=== PATIENT | male | born 1985 | race Caucasian/White ===

== ENCOUNTER 2018-02-25 19:29 | Emergency (ER) | payer OTHER, SELFPAY ==
[2018-02-25 19:31] VITALS: BP 173/92; PULSE 115; RESP 22; TEMP 36.9; O2SAT 98; BMI 24.7
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
[2018-02-25] MEDS: Diphth,Pertuss(Acell),Tet Vac 0.5 ML Vial IM (20:51)
[2018-02-25] MEDS: BACITRACIN 15 GM Tube 1 APPLIC TOPICAL (20:53)
[2018-02-25 21:09] VITALS: BP 144/78; PULSE 71; RESP 17; O2SAT 99
== END 2018-02-25 21:09 | disposition home or self-care (01) ==
PROVIDERS: Emergency Provider Emergency Medicine; Family Provider Family Medicine; PCP Family Medicine
DX: S61.012A Laceration without foreign body of left thumb without damage to nail, initial encounter (principal); S61.211A Laceration without foreign body of left index finger without damage to nail, initial encounter; W26.8XXA Contact with other sharp object(s), not elsewhere classified, initial encounter; Y93.9 Activity, unspecified; Y92.9 Unspecified place or not applicable; F41.9 Anxiety disorder, unspecified; Z79.899 Other long term (current) drug therapy
CPT/HCPCS: 12002; 90471; 90715; 99283

== ENCOUNTER 2020-05-07 18:53 | Emergency (ER) | payer OTHER, SELFPAY ==
[2020-05-07 18:55] VITALS: BP 142/100; PULSE 112; RESP 18; TEMP 37.3; O2SAT 100; BMI 25.1
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
[2020-05-07] MEDS: Morphine 4 MG/ML Syringe IM (20:00)
== END 2020-05-07 20:14 | disposition home or self-care (01) ==
PROVIDERS: Emergency Provider Emergency Medicine; PCP Family Medicine
DX: T23.201A Burn of second degree of right hand, unspecified site, initial encounter (principal); T23.102A Burn of first degree of left hand, unspecified site, initial encounter; X08.8XXA Exposure to other specified smoke, fire and flames, initial encounter; Y93.9 Activity, unspecified; Y92.9 Unspecified place or not applicable; F17.200 Nicotine dependence, unspecified, uncomplicated
CPT/HCPCS: 96372; 99282

== ENCOUNTER → 2020-06-05 09:29 | Outpatient (CLI) | payer OTHER, SELFPAY ==
[2020-05-07 18:55] VITALS: BMI 25.1
== END ==
PROVIDERS: PCP Family Medicine; Visit Provider Family Medicine
DX: R50.9 Fever, unspecified (principal); Z20.828 Contact with and (suspected) exposure to other viral communicable diseases
CPT/HCPCS: 87635; U0003

== ENCOUNTER → 2020-08-15 | Outpatient (CLI) | payer OTHER, SELFPAY | END | disposition home or self-care (01) | LOC: LABSPEC 13:04 | PROVIDERS: PCP Family Medicine; Visit Provider Family Medicine | DX: Z20.828 Contact with and (suspected) exposure to other viral communicable diseases (principal) | CPT/HCPCS: 87635; U0005; U0003 ==

== ENCOUNTER → 2021-05-21 | Outpatient (CLI) | payer OTHER, SELFPAY | END | disposition home or self-care (01) | LOC: LABSPEC 05-22 06:33 | PROVIDERS: PCP Family Medicine; Referring Provider Family Medicine; Visit Provider Family Medicine | DX: Z20.828 Contact with and (suspected) exposure to other viral communicable diseases (principal) | CPT/HCPCS: 87635; U0005; U0003 ==

== ENCOUNTER 2021-09-29 09:09 | Emergency (ER) | payer BC, SELFPAY ==
[2021-09-29 09:10] VITALS: BP 137/89; PULSE 93; RESP 18; TEMP 36.4; O2SAT 97; BMI 26.7
--- NOTE | 2021-09-29 09:21 | CT_ITS ---
STUDY: CT ABDOMEN AND PELVIS WITH CONTRAST REASON FOR EXAM: Male, 36 years old. 3 day history of lower abdominal pain. Intermittent sharp pain. 2 day history of fever and diarrhea. RADIATION DOSAGE (If Supplied By Facility): CTDIvol = ( 9.42 ) mGy, DLP = ( 465.89 ) mGycm TECHNIQUE: Transaxial images were obtained from the dome of the diaphragm to the symphysis pubis without oral contrast. IV 100mL Isovue-300 was administered. Sagittal and coronal images were reconstructed. Individualized dose optimization techniques were used for this CT. COMPARISON: None. FINDINGS: The visualized lung bases are unremarkable. The visualized portions of the heart are within normal limits. There is a 1.4 cm hypodense nodule in the anterior aspect of the right lobe of the liver adjacent to the right hemidiaphragm. This most likely represents a small cyst. Normal gallbladder and extrahepatic biliary system. Normal spleen. Normal pancreas. Normal bilateral adrenal glands. There is a 9 mm cyst in the upper pole of the right kidney. Normal left kidney. Normal visualized stomach. Normal small intestine. There is diverticulosis, with thickening of the colon wall, and pericolonic inflammation changes consistent with acute diverticulitis. The appendix is visualized and appears normal. There is scattered atherosclerotic calcification of the abdominal aorta, without a demonstrated aneurysm. Normal inferior vena cava. Normal retroperitoneum. Normal urinary bladder. Normal abdominal wall. Normal osseous structures. CT/Abdomen/Pelvis W IV Cont ONLY IMPRESSION: Findings indicate with acute sigmoid diverticulitis. No focal abscess is seen at this time. Electronically Signed: Larry Palm MD at 10:50 EST ,
--- NOTE | 2021-09-29 09:22 | EDS_ITS ---
HPI HPI - GI History of Present Illness Chief Complaint: Abd Pain Informant: patient and spouse/S.O. Abdominal Pain/Flank Pain Onset: Days (3) Context: Gradual Onset Timing: Continuous Quality: Aching and Sharp Location: - (lower abd; no migration. Occasional sharp radiation into perineum/rectum.) Current Severity: Moderate Maximum Severity: Moderate Worsened by: Nothing Relieved by: - (Maybe temporarily improved with small bowel movement this morning but otherwise nothing) Nausea/Vomiting/Emesis GI Symptom: Negative for Nausea and Vomiting Diarrhea/Melena/Hematochezia GI Symptom: Positive for Diarrhea (1 bout of loose bowel movement 2 days ago); Negative for Melena and Hematochezia Associated Symptoms Associated Symptoms: Negative for Dysuria, Frequency, Hematuria and Urgency Narrative Narrative: Patient usually has bowel movements every day, he has not had a bowel movement over the weekend, coinciding with pain in his lower abdomen. He had a remote varicocele surgery and he states they made an incision in his left inguinal area as part of that but no other abdominal surgeries. Also states he has had some fevers over the past 2 days, when they measured it it was 99.x several different times. No symptoms of other illness recently. Never had these pains before. [facility] Medical History (Updated 09/29/21 @ 10:[address] Tyler Gottlieb MD) ADHD Anxiety Home Medications lisdexamfetamine [Vyvanse] 70 mg PO DAILY 03/18/15 [History Last Taken Unknown] lorazepam 1 mg PO DAILY PRN PRN 02/25/18 [History Last Taken Unknown] bacitracin 15 gm TP [id number] #1 oint...g. 05/07/20 [Rx Last Taken Unknown] ciprofloxacin HCl 500 mg PO BID #20 tablet 09/29/21 [Rx Last Taken Unknown] metronidazole 500 mg PO Q12H #20 tab 09/29/21 [Rx Last Taken Unknown] Allergy/AdvReac Type Severity Reaction Status Date / Time amoxicillin Allergy Unknown Verified 09/29/21 09:10 Surgical History S/P scrotal varicocelectomy Social History Smoking Status: Current some day smoker tobacco type: cigarettes ROS ROS ED Constitutional Constitutional ED: Denies chills or fever(s) Eyes Eyes: Denies change in vision or diplopia ENT ENT ED: Denies rhinorrhea or sore throat Cardiovascular Cardiovascular: Denies chest pain or palpitations Respiratory/Chest Respiratory/Chest: Denies cough or dyspnea Gastrointestinal Gastrointestinal: Reports as per HPI, abdominal pain and diarrhea; Denies nausea or vomiting Genitourinary Genitourinary ED: Denies dysuria or hematuria Musculoskeletal Musculoskeletal: Denies back pain or neck pain Integumentary Denies abscess or rash Neurologic Neurologic: Denies headache(s), paresthesias or weakness Psychiatric Psychiatric: Denies anxiety or suicidal thoughts EXAM Physical Exam Const Vital Signs: 09/29/21 09:10 Temperature 97.6 F L Temperature Source Temporal Pulse Rate 93 Respiratory Rate 18 Blood Pressure 137/89 H Blood Pressure Mean 105 Pulse Ox 97 Oxygen Delivery Method Room Air Positive well nourished and well developed General Appearance ED: well developed and NAD HEENT Reports moist mucous membranes normocephalic and atraumatic Eyes PERRL and EOMs intact bilaterally Neck full ROM and supple Resp normal respiratory effort and clear to auscultation bilaterally Cardio regular rate, regular rhythm and no murmurs GI non-distended GI Narrative: Tenderness in the lower abdomen just left of suprapubic area. No other areas of tenderness. Brief involuntary guarding initially, but not reproducible. No rebound tenderness. Auscultation: normoactive bowel sounds Palpation: soft Back/Spine no CVA tenderness General Back: other FROM Extremity normal to inspection General Extremety ED: Negative for edema, pulses abnormal or tenderness General Extremity: Negative for edema or pulses abnormal Neuro oriented x3, CN's II-XII intact bilaterally and no sensory deficits noted Sensorium / Orientation: awake and alert Motor Exam: strength 5/5 throughout Skin no rashes or lesions noted and no wounds MDM MDM MDM Narrative Medical decision making narrative: Labs are unremarkable with a white blood count of 10.9 no strong leftward shift although there is a trend of 1, I had decided to CT him prior to lab results due to possible appendicitis, colitis, diverticulitis, certainly his symptoms sound GI. CT is consistent with acute sigmoid diverticulitis. There is no complication or abscess seen. He is feeling better after Toradol his vitals are stable and his labs are noted as below. Stable for outpatient treatment, given initial doses of Cipro and Flagyl IV here and prescriptions for discharge and close outpatient follow-up warranted. Lab Data Attestation: I reviewed the patient's lab results. Labs: Laboratory Results - last 24 hr 09/29/21 09/29/21 09/29/21 09:25 09:25 10:30 WBC 10.9 RBC 5.01 Hgb 15.1 Hct 45.5 MCV 90.8 MCH 30.1 MCHC 33.2 RDW Std Deviation 40.8 RDW Coeff of Moises 12.2 Plt Count 228 MPV 10.0 Immature Gran % (Auto) 0.400 Neut % (Auto) 72.1 H Lymph % (Auto) 16.1 L [place] % (Auto) 9.8 Eos % (Auto) 1.3 Baso % (Auto) 0.3 Absolute Neuts (auto) 7.9 H Absolute Lymphs (auto) 1.76 Nucleated RBC % 0 Sodium 138 Potassium 4.0 Chloride 103 Carbon Dioxide 30.0 Anion Gap 5 BUN 11 Creatinine 0.97 Estim Creat Clear Calc 105.28 Est GFR (MDRD) Af Amer 112 Est GFR (MDRD) Non-Af 93 BUN/Creatinine Ratio 11.3 Glucose 97 Calcium 9.2 Urine Color Yellow Urine Clarity Sl. Cloudy Urine pH 6.5 Ur Specific [place] 1.005 Urine Protein 30 H Urine Glucose (UA) Normal Urine Ketones Negative Urine Occult Blood Negative Urine Nitrite Negative Urine Bilirubin Negative Urine Urobilinogen Normal Ur Leukocyte Esterase 25 H Urine RBC 0 SEEN Urine WBC 0-5 SEEN Ur Squamous Epith Cells 0 SEEN Urine Bacteria 0 SEEN Urine Mucus 0 SEEN Radiography Diagnostic Testing: Clinical Impression(s) from Imaging Studies Abdomen/Pelvis CT 09/29/21 09:21 IMPRESSION: Findings indicate with acute sigmoid diverticulitis. No focal abscess is seen at this time. Electronically Signed: Larry Palm MD at 10:50 EST , Discharge Plan Triage Chief Complaint: Abd Pain ED Provider: Tyler Gottlieb Dx/Rx/DC Orders Clinical Impression: Sigmoid diverticulitis Instructions: ED Diverticulitis Prescriptions: New metronidazole [metronidazole] 500 MG tablet 500 mg PO Q12H Qty: 20 RF: 0 ciprofloxacin HCl [ciprofloxacin HCl] 500 MG tablet 500 mg PO BID Qty: 20 RF: 0 No Action lisdexamfetamine [Vyvanse] 70 MG capsule 70 mg PO DAILY RF: 0 lorazepam 1 MG tablet 1 mg PO DAILY PRN PRN (Reason: Anxiety) RF: 0 bacitracin 30 GM ointment 15 gm TP [id number] Qty: 1 RF: 0 Primary Care Provider: Crow Alfonso Referrals: Crow Alfonso DO [Primary Care Provider] - 1 Week Disposition Disposition: Home, Self Care
[2021-09-29] MEDS: 0.9% Normal Saline 1,000 ML 1000 ML IV (09:30)
[2021-09-29 09:31] LABS: Absolute Lymphocyte Count 1.76 X10^3/uL (0.83-4.51); Absolute Neutrophil Count 7.9 X10^3/uL (2.0-7.7); Basophil# 0.03 X10^3/uL; Basophil% 0.3 % (0-1); Eosinophil# 0.14 X10^3/uL; Eosinophils% 1.3 % (0-5); Hematocrit 45.5 % (40-54); Hemoglobin 15.1 g/dL (13.0-16.5); Lymphocyte # 1.76 X10^3/ul (0.83-4.51); Lymphocyte % 16.1 % (19-41); Mean Corp Hgb Conc 33.2 g/dL (32-36); Mean Corpuscular Hgb 30.1 pg (27.0-32.0); Mean Corpuscular Volume 90.8 fL (80-94); Monocyte# 1.07 X10^3/uL; Monocyte% 9.8 % (0-10); NRBC Flagged by Analyzer 0 % (0-5); Neutrophil # 7.87 X10^3/uL (2.7-7.7); Neutrophil % 72.1 % (47-70); Platelet Count 228 K/mm3 (150-450); RBC Distribution Width CV 12.2 % (11.6-14.6); RBC Distribution Width SD 40.8 fl (35.1-43.9); Red Blood Count 5.01 M/mm3 (4.6-6.2); White Blood Count 10.9 K/mm3 (4.4-11.0)
[2021-09-29] MEDS: Dicyclomine 10 MG Capsule 20 MG PO (09:31)
[2021-09-29] MEDS: Ketorolac 30 MG/ML Syringe IV (09:31)
[2021-09-29 09:47] LABS: Anion Gap 5 (5-15); BUN 11 mg/dL (7-18); BUN/Creat Ratio 11.3 RATIO (10-20); Calcium,Total 9.2 mg/dL (8.5-10.1); Chloride 103 mmol/L (98-107); Creatinine, Serum 0.97 mg/dL (0.70-1.30); EST Glomerular Filtration Rate 93 mL/min (>60); Est Glom Filt Rate - Afr Amer 112 mL/min (>60); Estimated Creatinine Clearance 105.28 ml/min; Glucose 97 mg/dL (74-106); Sodium Level 138 mmol/L (136-145)
[2021-09-29 10:40] LABS: Bacteria 0 SEEN /hpf (None Seen); Mucous, Urine 0 SEEN /hpf (<or=2+); Red Blood Cells-Urine 0 SEEN /hpf (0-5); Squamous Epithelial Cells - UA 0 SEEN /hpf (0-5)
[2021-09-29 10:41] LABS: Color, Urine Yellow (Yellow); Glucose, Dipstick Normal (Normal); Ketone-Dipstick Negative (Negative); Leukocyte Esterase-Dipstick 25 /ul (Negative); Nitrite-Dipstick Negative (Negative); Occult Blood-Urine Negative /ul (Negative); Protein-Dipstick 30 mg/dl (Negative); Specific Gravity, Urine 1.005 (1.002-1.030); Urine Bilirubin Dipstick Negative (Negative); Urine Clarity Sl. Cloudy (Clear); Urine Urobilinogen Normal (Normal); Urine pH 6.5 (5.0 - 8.0)
[2021-09-29 10:53] LABS: White Blood Cells 0-5 SEEN /hpf (0-5)
[2021-09-29] MEDS: Ciprofloxacin 400 MG/200 ML BAG 200 MG IV (11:01)
[2021-09-29] MEDS: metroNIDAZOLE 500 MG/100 ML BAG 100 MG IV (11:44)
== END 2021-09-29 12:24 | disposition home or self-care (01) ==
PROVIDERS: Emergency Provider Emergency Medicine; PCP Family Medicine; Visit Provider Emergency Medicine
DX: K57.32 Diverticulitis of large intestine without perforation or abscess without bleeding (principal); F17.210 Nicotine dependence, cigarettes, uncomplicated; F90.9 Attention-deficit hyperactivity disorder, unspecified type; F41.9 Anxiety disorder, unspecified; Z79.899 Other long term (current) drug therapy
CPT/HCPCS: 74177; 80048; 81001; 85025; 96361; 96365; 96368; 96375; 99283; J7030; Q9967; A4216; J0744

== ENCOUNTER 2022-01-26 13:24 | Emergency (ER) | payer BC, SELFPAY ==
[2022-01-26 13:26] VITALS: BP 121/74; PULSE 121; RESP 17; TEMP 37.3; O2SAT 96; BMI 26.2
[2022-01-26 14:02] LABS: Absolute Lymphocyte Count 0.78 X10^3/uL (0.83-4.51); Absolute Neutrophil Count 14.4 X10^3/uL (2.0-7.7); Basophil# 0.03 X10^3/uL; Basophil% 0.2 % (0-1); Eosinophil# 0.01 X10^3/uL; Eosinophils% 0.1 % (0-5); Hematocrit 38.9 % (40-54); Hemoglobin 13.4 g/dL (13.0-16.5); Lymphocyte # 0.78 X10^3/ul (0.83-4.51); Lymphocyte % 4.7 % (19-41); Mean Corp Hgb Conc 34.4 g/dL (32-36); Mean Corpuscular Volume 87.2 fL (80-94); Mean Platelet Vol. 10.1 fl (6.2-12.0); Monocyte# 1.33 X10^3/uL; NRBC Flagged by Analyzer 0 % (0-5); Neutrophil # 14.43 X10^3/uL (2.7-7.7); Neutrophil % 86.6 % (47-70); Platelet Count 191 K/mm3 (150-450); RBC Distribution Width CV 12.1 % (11.6-14.6); RBC Distribution Width SD 38.8 fl (35.1-43.9); Red Blood Count 4.46 M/mm3 (4.6-6.2); White Blood Count 16.7 K/mm3 (4.4-11.0)
[2022-01-26 14:05] LABS: Bacteria 0 SEEN /hpf (None Seen); Mucous, Urine 0 SEEN /hpf (<or=2+); Red Blood Cells-Urine 0 SEEN /hpf (0-5); Squamous Epithelial Cells - UA 0 SEEN /hpf (0-5); White Blood Cells 0 SEEN /hpf (0-5)
[2022-01-26 14:06] LABS: Color, Urine Yellow (Yellow); Glucose, Dipstick Normal (Normal); Leukocyte Esterase-Dipstick Negative /ul (Negative); Nitrite-Dipstick Negative (Negative); Occult Blood-Urine Negative /ul (Negative); Protein-Dipstick 30 mg/dl (Negative); Urine Bilirubin Dipstick Negative (Negative); Urine Clarity Clear (Clear); Urine Urobilinogen Normal (Normal)
[2022-01-26 14:08] LABS: Ketone-Dipstick 150 mg/dl (Negative)
[2022-01-26 14:18] LABS: Anion Gap 7 (5-15); BUN 11 mg/dL (7-18); BUN/Creat Ratio 11.4 RATIO (10-20); Calcium,Total 8.8 mg/dL (8.5-10.1); Chloride 106 mmol/L (98-107); Creatinine, Serum 0.96 mg/dL (0.70-1.30); EST Glomerular Filtration Rate 94 mL/min (>60); Est Glom Filt Rate - Afr Amer 113 mL/min (>60); Estimated Creatinine Clearance 106.38 ml/min; Glucose 109 mg/dL (74-106); Potassium 3.7 mmol/L (3.5-5.1); Sodium Level 136 mmol/L (136-145)
--- NOTE | 2022-01-26 14:49 | CT_ITS ---
STUDY: CT Abdomen And Pelvis W/ Contrast Injection 01/26/2022 5:04 PM REASON FOR EXAM: Male, 36 years old. ABDOMINAL PAIN abd pain Technologist Notes PATIENT STATES THAT HE IS CURRENTLY BEING TREATED FOR DIVERTICULITIS. REPORTS CHILLS, FATIGUE, AND HEADACHE TODAY AND SENT INTO ED BY . TECHNIQUE: Transaxial images were obtained with oral contrast, and with Oral and amp; IV Gastrografin and amp; 100mL Isovue-300 intravenous contrast. Individualized dose optimization techniques were used for this CT. COMPARISON: None. FINDINGS: The visualized lung bases are unremarkable. The visualized portions of the heart are within normal limits. Unremarkable liver. Unremarkable gallbladder and extrahepatic biliary system. Unremarkable spleen. Unremarkable pancreas. Unremarkable bilateral adrenal glands. There are hypodensities in the right kidney. These are consistent for cysts. No follow up required. No acute findings of the left kidney. Unremarkable visualized stomach. Unremarkable small intestine. There is diverticulosis, with thickening of the colon wall, and pericolonic inflammation changes consistent with acute diverticulitis. Se 2 IM98. The appendix is visualized and appears unremarkable. There are calcifications of the abdominal aorta. This is consistent for atherosclerotic disease. There is no abdominal aortic aneurysm. Unremarkable inferior vena cava. Subcentimeter mesenteric lymph nodes. Unremarkable urinary bladder. There is an umbilical hernia containing fat. Unremarkable osseous structures. CT/Abdomen/Pelvis WITH Contrast IMPRESSION: (NOT LISTED IN ORDER OF SIGNIFICANCE) Single inflamed diverticulum of the sigmoid colon suggesting mild diverticulitis Other findings as above. Electronically Signed: Giovani Hu MD at 17:07 EDT ,
--- NOTE | 2022-01-26 14:52 | EDS_ITS ---
HPI History of Present Illness Chief Complaint: Abd Pain Informant: patient Onset/Context/Timing Onset: Days (5 days) Context: Gradual Onset Current Severity: Moderate Maximum Severity: Moderate Narrative Narrative: Patient presents with 5-day history of lower abdominal pain with fever and chills. He has a history of diverticulitis and based on his symptoms his PCP started him on cefdinir. He states he felt pretty well the last 2 days and was outside doing yard work. This morning he woke up and felt significantly worse. He has been taking ibuprofen to help with pain and fever. [facility] Medical History ADHD Anxiety Home Medications lisdexamfetamine 70 mg capsule (Vyvanse) 70 mg PO DAILY 03/18/15 [History Last Taken Unknown] lorazepam 1 mg tablet 1 mg PO DAILY PRN PRN Anxiety 02/25/18 [History Last Taken Unknown] cefdinir 300 mg capsule 1 cap PO BID 01/26/22 [History Last Taken Unknown] ciprofloxacin HCl 500 mg tablet (Cipro) 500 mg PO BID #20 tabs 01/26/22 [Rx Last Taken Unknown] hydrocodone-acetaminophen 5-325mg 5mg-325mg 1 tab PO Q6H PRN pain 3 days #10 tabs 01/26/22 [Rx Last Taken Unknown] metronidazole 500 mg tablet 500 mg PO Q8H 7 days #21 tabs 01/26/22 [Rx Last Taken Unknown] Allergy/AdvReac Type Severity Reaction Status Date / Time amoxicillin Allergy Unknown Verified 01/26/22 13:25 Surgical History S/P scrotal varicocelectomy Social History Smoking Status: Current some day smoker tobacco type: cigarettes ROS ROS ED Constitutional Constitutional ED: Reports chills and fever(s) Eyes Eyes: Denies change in vision or discharge from eye(s) ENT ENT ED: Denies discharge from eye(s), rhinorrhea or sore throat Cardiovascular Cardiovascular: Denies chest pain or palpitations Respiratory/Chest Respiratory/Chest: Denies cough or dyspnea Gastrointestinal Gastrointestinal: Reports abdominal pain; Denies diarrhea, nausea or vomiting Genitourinary Genitourinary ED: Reports dysuria; Denies difficulty urinating Musculoskeletal Musculoskeletal: Denies back pain or extremity pain Integumentary Denies Abrasions or rash Neurologic Neurologic: Reports headache(s) and weakness Allergic/Immunologic Allergic/Immunologic ED: Denies lip swelling or urticaria EXAM Physical Exam Const Vital Signs: 01/26/22 13:26 Temperature 99.2 F H Temperature Source Temporal Pulse Rate 121 H Respiratory Rate 17 Blood Pressure 121/74 H Blood Pressure Mean 89 Pulse Ox 96 Oxygen Delivery Method Room Air Positive well nourished and well developed General Appearance ED: well developed HEENT Reports normocephalic and head/scalp atraumatic Eyes PERRL and EOMs intact bilaterally Neck supple Chest Wall inspection of chest normal and palpation of chest normal Resp normal respiratory effort and clear to auscultation bilaterally Cardio regular rhythm Rate: tachycardic GI GI Narrative: Abdomen is soft with mild tenderness across the lower abdomen. No guarding or rebound. Palpation: soft Extremity normal to inspection Neuro oriented x3 and no sensory deficits noted Sensorium / Orientation: alert Motor Exam: strength 5/5 throughout Psych mental status grossly normal Skin no rashes or lesions noted MDM MDM MDM Narrative Medical decision making narrative: Patient was given morphine and Zofran here along with IV fluids. Lab Data Attestation: I reviewed the patient's lab results. Labs: Laboratory Results - last 24 hr 01/26/22 01/26/22 01/26/22 13:33 13:33 14:02 WBC 16.7 H RBC 4.46 L Hgb 13.4 Hct 38.9 L MCV 87.2 MCH 30.0 MCHC 34.4 RDW Std Deviation 38.8 RDW Coeff of Moises 12.1 Plt Count 191 MPV 10.1 Immature Gran % (Auto) 0.400 Neut % (Auto) 86.6 H Lymph % (Auto) 4.7 L [place] % (Auto) 8.0 Eos % (Auto) 0.1 Baso % (Auto) 0.2 Absolute Neuts (auto) 14.4 H Absolute Lymphs (auto) 0.78 L Nucleated RBC % 0 Sodium 136 Potassium 3.7 Chloride 106 Carbon Dioxide 23.0 Anion Gap 7 BUN 11 Creatinine 0.96 Estim Creat Clear Calc 106.38 Est GFR (MDRD) Af Amer 113 Est GFR (MDRD) Non-Af 94 BUN/Creatinine Ratio 11.4 Glucose 109 H Calcium 8.8 Urine Color Yellow Urine Clarity Clear Urine pH 6.0 Ur Specific [place] 1.030 Urine Protein 30 H Urine Glucose (UA) Normal Urine Ketones 150 A* Urine Occult Blood Negative Urine Nitrite Negative Urine Bilirubin Negative Urine Urobilinogen Normal Ur Leukocyte Esterase Negative Urine RBC 0 SEEN Urine WBC 0 SEEN Ur Squamous Epith Cells 0 SEEN Urine Bacteria 0 SEEN Urine Mucus 0 SEEN Radiography Diagnostic Testing: Clinical Impression(s) from Imaging Studies Abdomen/Pelvis CT 01/26/22 14:49 IMPRESSION: (NOT LISTED IN ORDER OF SIGNIFICANCE) Single inflamed diverticulum of the sigmoid colon suggesting mild diverticulitis Other findings as above. Electronically Signed: Giovani Hu MD at 17:07 EDT , Treatment and Re-Evaluation Narrative: White blood cell count is elevated at 16.7 with left shift. Chemistry studies unremarkable. Urinalysis shows ketones but no sign of acute infection. CT scan shows mild diverticulitis with a single inflamed diverticulum. On repeat evaluation patient is improved. He has only been on cefdinir up to this point. He was given a dose of Cipro and Flagyl IV here. He will be switched to Cipro and Flagyl p.o. for better coverage and will be given short course of [place] for pain control. Return instructions are provided. Discharge Plan Triage Chief Complaint: Abd Pain ED Provider: Ghazal Tatum Dx/Rx/DC Orders Clinical Impression: Diverticulitis Instructions: ED Diverticulitis Prescriptions: New ciprofloxacin HCl [Cipro] 500 mg tablet 500 mg PO BID Qty: 20 0RF metronidazole 500 mg tablet 500 mg PO Q8H 7 Days Qty: 21 0RF hydrocodone-acetaminophen 5-325 mg tablet 1 tab PO Q6H PRN (Reason: pain) 3 Days Qty: 10 0RF No Action lisdexamfetamine [Vyvanse] 70 MG capsule 70 mg PO DAILY Label Comments: ATTENTION lorazepam 1 MG tablet 1 mg PO DAILY PRN PRN (Reason: Anxiety) cefdinir 300 mg capsule 1 cap PO BID Primary Care Provider: Crow Alfonso Referrals: Kaden,Crow, DO [Primary Care Provider] - 1-2 Weeks Disposition Disposition: Home, Self Care
[2022-01-26] MEDS: Morphine 4 MG/ML Syringe IV (15:00)
[2022-01-26] MEDS: Ondansetron 4 MG/2 ML Vial IV (15:00)
[2022-01-26] MEDS: 0.9% Normal Saline 1,000 ML 1000 ML IV (15:01)
[2022-01-26] MEDS: 0.9% Normal Saline 1,000 ML 150 ML IV (15:04)
[2022-01-26] MEDS: Ciprofloxacin 400 MG/200 ML BAG 200 MG IV (15:40)
[2022-01-26] MEDS: metroNIDAZOLE 500 MG/100 ML BAG 100 MG IV (15:40)
[2022-01-26 17:39] VITALS: BP 136/91; PULSE 91; RESP 18
== END 2022-01-26 17:41 | disposition home or self-care (01) ==
PROVIDERS: Emergency Provider Emergency Medicine; PCP Family Medicine; Visit Provider Emergency Medicine
DX: K57.92 Diverticulitis of intestine, part unspecified, without perforation or abscess without bleeding (principal); F17.210 Nicotine dependence, cigarettes, uncomplicated; Z87.19 Personal history of other diseases of the digestive system; F90.9 Attention-deficit hyperactivity disorder, unspecified type; F41.9 Anxiety disorder, unspecified; Z79.899 Other long term (current) drug therapy
CPT/HCPCS: 74177; 80048; 81001; 85025; 87040; 96361; 96365; 96368; 96375; 99284; J7030; Q9967; A4216; J0744; J2405

== ENCOUNTER → 2022-09-18 | Outpatient (CLI) | payer BC, SELFPAY ==
[2022-09-18 18:42] LABS: Cholesterol 188 mg/dL (200); High Density Lipoprotein 35 mg/dL; Triglycerides 327 mg/dL; Very Low Density Lipoprotein 65 mg/dL (5-40)
== END | disposition home or self-care (01) ==
LOC: BFHLAB 15:51
PROVIDERS: PCP Family Medicine; Visit Provider Family Medicine
DX: Z00.00 Encounter for general adult medical examination without abnormal findings (principal); E55.9 Vitamin D deficiency, unspecified
CPT/HCPCS: 36415; 80061; 82306

== ENCOUNTER → 2024-10-02 | Outpatient (CLI) | payer BC, SELFPAY ==
[2024-10-02 09:50] LABS: PSA,Total - Annual Screen 0.89 ng/mL (0.02-4.00)
== END | disposition home or self-care (01) ==
LOC: LAB 08:34
PROVIDERS: PCP Family Medicine; Referring Provider Nurse Practitioner; Visit Provider Nurse Practitioner
DX: Z12.5 Encounter for screening for malignant neoplasm of prostate (principal)
CPT/HCPCS: 36415; 84153; G0103

== ENCOUNTER 2025-02-07 17:00 | Outpatient (RCR) | payer BC, SELFPAY ==
--- NOTE | 2025-01-17 17:00 | HP.PTEVAL ---
Patient's Visit Information Visit Information Visit Information: KERRIE MEJÍA is a 39 year old M referred to Physical Therapy by Dr. Crow Alfonso DO with a diagnosis of Shoulder and neck pain. Date of Evaluation: 01/17/25 Physical Therapist: ALEXYS Bishop Visit Plan Frequency: 2x /Week Duration: 2 Months Plan: Question c-spine derangement VS... shoulder impingement vs tight pec/scalene compression of nerves 2X/ week for 8 weeks for chin tucks for centralization of L UE/shoulder blade symptoms, pec stretches, Scapular and postural exercises, RC with scapular stabilization exercises with HEP Corner stretches 3 way, supine chin tucks and then seated chin tucks as able Subjective Subjective: Pt is R handed. He has some L shoulder pain that has been on and off for the last 20 years. When he was 18-19 years old he hit his shoulder on the back of a table and had to have cortisone shots. It went away and then it has been off and on and now it is more frequent. His shoulder pain is back and now he is getting tingling into his fingers. He gets some neck pain at times. He feels that he has weakness in that shoulder at times. He has not had cortisone years ago. He has not had any x-ray/MRI. He can lay on that shoulder for awhile and then he has to move it. Heavy lifting he can do (it hurts but does not hinder him). He does drop tools lately. He has pain behind the shoulder blade and up close to the spine and somtimes in the pec muscle and into the side of the L neck. OCC he will have a REEVES and not sure they are related Pain L shoulder pain: Pain Intensity (Out of 10): 4 Neck pain: Pain Intensity (Out of 10): 4 Objective Objective: R handed: [employer] strength: R 120 and L 115 C-spine AROM: Rotation 100% B with increase tightness on the R side, SB B 100%, Flexion 100%, Ext 25% with some increase discomfort Full B shoulder AROM + empty can for weakness and slight discomfort on the L Seated chin tucks X 10 ( sensation in the shoulder blade and some pain in the c-spine L paraspinals and then started with some tingling in the L wrist and fingers. Sat for a little bit and the tingling in the fingers went away and the shoulder blade pain could not tell if it changed.... the pain was more dull. Supine chin tucks with towel under head X 5 started to have pain on the R side , 2 X 10 chin tucks in supine with no towel... no pain Seated chin tucks X 10....no pain. After sitting for a little bit he started to have some tingling in his L hand... sat with upright posture and it went away. Pec tightness on the L Balance/Special Test Scores Quick DASH Score: 29.5450 Goals Goal 1:: I HEP Goal Time Frame: 6-8 Weeks Goal 2:: Centralize L shoulder blade pain Goal Time Frame: 6-8 Weeks Goal 3:: Be able to use his L shoulder without pain Goal Time Frame: 6-8 Weeks Goal 4:: Stop dropping things as frequently Goal Time Frame: 6-8 Weeks Rehabilitation Potential Rehabilitation Potential: Good Anticipated Interventions Patient/Client Instruction: Educate patient on: Condition and Plan of Care For the Purpose of:: To decrease pain, To increase ROM, To improve nutrient delivery to tissue, To improve muscle performance and motor function, To improve ability to perform ADL's, To increase tolerance to activity/condition/position, To improve performance and independence with ADL's, To improve ability of physical actions for home/community/work/leisure, To improve health of tissue, To decrease soft tissue restriction and To increase flexibility/ROM Therapeutic Exercise to Include: Strength training, Postural training, Flexibilty training, Neuromotor development, Passive ROM, Active ROM and Scapular Strength/Stabilization For the Purpose of:: To decrease pain, To increase ROM, To improve nutrient delivery to tissue, To improve muscle performance and motor function, To improve ability to perform ADL's, To increase tolerance to activity/condition/position, To improve performance and independence with ADL's, To decrease level of supervision to perform tasks, To improve ability of physical actions for home/community/work/leisure, To improve health of tissue, To decrease soft tissue restriction and To increase flexibility/ROM Manual Therapy Techniques to Include: Mobilization, Passive ROM and Soft tissue mobilization For the Purpose of:: To decrease pain, To increase ROM, To improve nutrient delivery to tissue, To improve muscle performance and motor function, To improve ability to perform ADL's, To increase tolerance to activity/condition/position, To improve health of tissue, To decrease soft tissue restriction and To increase flexibility/ROM Cryotherapy (ice pack, ice massage): Yes Thermo therapy (hot pack): Yes Ultrasound (thermal/non thermal): Yes For the Purpose of:: To decrease pain and To improve nutrient delivery to tissue Text: Thank you for the opportunity to evaluate your patient. For Medicare and Medicare HMO plans, please review the plan of care and approve it. It will need to be FAXED BACK to us at [phone] for Medicare purposes. For Medicare only, by signing this I certify the plan of care. Please let me know if there are questions or concerns regarding this plan of care. Physician Signature: Date:
--- NOTE | 2025-05-01 08:51 | HP.PT.NRP ---
Patient Information Patient Information: KERRIE MEJÍA was seen in my office for initial evaluation on 01/17/25. The following Plan of Care was established for this patient: POC Established Initial Frequency: 2x /Week Initial Duration: 2 Months Anticipated Interventions Patient/Client Instruction: Educate patient on: Condition and Plan of Care For the Purpose of:: To decrease pain, To increase ROM, To improve nutrient delivery to tissue, To improve muscle performance and motor function, To improve ability to perform ADL's, To increase tolerance to activity/condition/position, To improve performance and independence with ADL's, To improve ability of physical actions for home/community/work/leisure, To improve health of tissue, To decrease soft tissue restriction and To increase flexibility/ROM Therapeutic Exercise to Include: Strength training, Postural training, Flexibilty training, Neuromotor development, Passive ROM, Active ROM and Scapular Strength/Stabilization For the Purpose of:: To decrease pain, To increase ROM, To improve nutrient delivery to tissue, To improve muscle performance and motor function, To improve ability to perform ADL's, To increase tolerance to activity/condition/position, To improve performance and independence with ADL's, To decrease level of supervision to perform tasks, To improve ability of physical actions for home/community/work/leisure, To improve health of tissue, To decrease soft tissue restriction and To increase flexibility/ROM Manual Therapy Techniques to Include: Mobilization, Passive ROM and Soft tissue mobilization For the Purpose of:: To decrease pain, To increase ROM, To improve nutrient delivery to tissue, To improve muscle performance and motor function, To improve ability to perform ADL's, To increase tolerance to activity/condition/position, To improve health of tissue, To decrease soft tissue restriction and To increase flexibility/ROM Cryotherapy (ice pack, ice massage): Yes Thermo therapy (hot pack): Yes Ultrasound (thermal/non thermal): Yes For the Purpose of:: To decrease pain and To improve nutrient delivery to tissue Last Seen Last Seen: This patient was last seen in our office 02/07/25. Pertinent comments regarding their Physical therapy will appear below: [facility] PT At this point I will be discontinuing this patient from physical therapy. I would be happy to see this patient again in the future if found appropriate by the physician. Thank you! Megan Laura, MPT Balance/Gait/Functional tests Balance/Special Test Scores Quick DASH Score: 29.5450
== END 2025-02-07 19:00 | disposition home or self-care (01) ==
LOC: PT 17:00
PROVIDERS: PCP Family Medicine; Referring Provider Family Medicine; Visit Provider Family Medicine
DX: M54.12 Radiculopathy, cervical region (principal)
CPT/HCPCS: 97110; 97162

== ENCOUNTER → 2025-03-13 | Outpatient (CLI) | payer BC, SELFPAY ==
[2025-03-13 18:56] LABS: CRP < 3.00 mg/L (0.0-3.0)
== END | disposition home or self-care (01) ==
PROVIDERS: PCP Family Medicine; Visit Provider Family Medicine
DX: M13.0 Polyarthritis, unspecified (principal)
CPT/HCPCS: 36415; 85652; 86140; 86200; 86431

== ENCOUNTER → 2025-04-18 | Outpatient (CLI) | payer BC, SELFPAY ==
--- NOTE | 2025-04-18 14:33 | NEURO ---
NCS and/or EMG Patient Report Ordering Doctor: Crow Alfonso DATE OF SERVICE: 04/18/25 Demetrius presents with complaints of numbness and tingling in the hands. Electrodiagnostic findings: Right median motor nerve demonstrates normal distal latency, amplitude and conduction velocity. Left median motor response within normal limits. Normal ulnar motor response bilaterally. Normal median ulnar F?waves. Prolonged right median sensory latency at the wrist with reduced conduction velocity. Needle EMG testing was performed upper limbs. All muscles tested showed no evidence of denervation with normal motor unit action potentials. Electrodiagnostic impression: This is an abnormal study in the upper limbs 1. Electrodiagnostic findings suggestive of right sided median mononeuropathy. This consistent with a mild right carpal tunnel syndrome. There is no electrodiagnostic evidence for a left-sided carpal tunnel syndrome 2. No electrodiagnostic evidence is noted for ulnar neuropathy. Multi Select Codes Neurology Neurology Interp Codes: 21709-85 Musc test done w/n test comp (interp) (2) and 33615-24 Nrv cndj test 13/> studies (interp)
== END | disposition home or self-care (01) ==
LOC: PSN 13:04
PROVIDERS: PCP Family Medicine; Referring Provider Family Medicine; Visit Provider Family Medicine
DX: G56.03 Carpal tunnel syndrome, bilateral upper limbs (principal)
CPT/HCPCS: 95886; 95913

== ENCOUNTER 2025-07-25 09:51 | Day surgery (SDC) | payer BC, SELFPAY ==
[2025-07-25] VITALS (9 sets, daily range): BP systolic 105–138; BP diastolic 66–85; PULSE 83–98; RESP 16–18; TEMP 36.4–37.4; O2SAT 93–98; BMI 24.6
--- OUTSIDE RECORDS SUMMARY | 2025-07-25 10:15 | XMS RPT_ITS | CCD ---
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 Start: April 18, 2025 Dr. Crow Alfonso DO Referring Provider Active Start: April 18, 2025 Dr. Crow Alfonso DO Nurse Practitioner Active Start: April 18, 2025 Dr. Evelio Ladd MD Attending physician Active Start: April 18, 2025 Team Status: Inactive Member Role/Relationship Status Dates Dr. Crow Alfonso DO Primary care physician Active Start: February 07, 2025 End: February 07, 2025 Dr. Crow Alfonso DO Attending physician Active Start: February 07, 2025 End: February 07, 2025 Dr. Crow Alfonso DO Referring Provider Active Start: February 07, 2025 End: February 07, 2025 Goals (unrecognized section and content) Goals may be documented in a n alternate sectionGoals may be documented in an alternate sectionGoals may be documented in an alternate sectionGoals may be documented in an alternate sectionGoals may be documented in an alternate section (unrecognized sect ion and content) No Status Records Found INFORMATION SOURCE (unrecogn ized section and content) DATE CREATED AUTHOR 05/30/2025 [facility] FOR RECORDS PERTAINING TO PATIENTS WHO ARE OR HAVE BEEN ENROLLED IN A CHEMICAL DEPENDENCY/SUBSTANCEABUSE PROGRAM, SOME INFORMATION MAY BE OMITTED. This clinical summary was aggregated from multiple sources. Caution should be exercised in using it in the provision of clinical care. This summary normalizes information from multiple sources, and as a consequence, information in this document may materially change the coding, format and clinical context of patient data. In addition, data may be omitted in some cases. CLINICAL DECISIONS SHOULD BE BASED ON THE PRIMARY CLINICAL RECORDS. [facility] [employer] [facility]. provides no warranty or guarantee of the accuracy or completeness of information in this document.
[2025-07-25] MEDS: Lactated Ringers 1,000 ML 15 ML IV (10:29)
--- NOTE | 2025-07-25 10:59 | PCM.PRE.AN2 ---
ASA Classification* ASA Classification ASA Classification: 2 Assessment & Plan Anesthesia* Anesthesia Assessment Anesthesia Assessment: Discussed sedation and/or anesthesia options, risks, benefits, and alternatives with patient/parents/legal guardian/POA. Questions invited. The patient/parents/legal guardian/POA seems to understand and agrees to proceed with anesthesia plan. Reviewed the physical assessment, medical history, allergy history and patient home medications list prior to surgery/procedure/anesthetic and documented any changes. Performed airway and anesthesia risk assessments. Anesthesia Type Anesthesia Type: MAC Anesthesia Focused Assessment* Temperature: 99.3 F Pulse Rate: 98 Blood Pressure: 138/85 Respiratory Rate: 18 Pulse Ox: 98 Airway Assessment Mouth opens: >3 cm Mallampati Score: II Labs Anesthesia Preop lab: CBC WBC, (4.4-11.0) 16.7 K/mm3 H 01/26/22, 13:33 RBC, (4.6-6.2) 4.46 M/mm3 L 01/26/22, 13:33 Hgb, (13.0-16.5) 13.4 g/dL 01/26/22, 13:33 Hct, (40-54) 38.9 % L 01/26/22, 13:33 Plt Count, (150-450) 191 K/mm3 01/26/22, 13:33 CHEMISTRY Potassium, (3.5-5.1) 3.7 mmol/L 01/26/22, 13:33 Sodium, (136-145) 136 mmol/L 01/26/22, 13:33 BUN, (7-18) 11 mg/dL 01/26/22, 13:33 Creatinine, (0.70-1.30) 0.96 mg/dL 01/26/22, 13:33 Glucose, (74-106) 109 mg/dL H 01/26/22, 13:33 COAG Pre-Assessment Diagnosis/Proposed Procedure Planned Operative Procedure(s): RIGHT ENDOSCOPIC CARPAL TUNNEL RELEASE Anesthesia History Anesthesia History - seismic interpreter: Anesthesia History - seismic interpreter Hx Hospitalization Yes: DIVERTICULITIS 07/19/25 10:22 Any Problems With Anesthesia No 07/19/25 10:22 Cholinesterase deficiency No 07/19/25 10:22 You/Your Family Experience No 07/19/25 10:22 fever (hyperthermia) with Relationship Recent Exposure to Contagious No 07/25/25 10:18 Disease Does patient have nerve No 07/19/25 10:22 stimulator Patient instructed to have device shut off --Does patient have Pacemaker No 07/25/25 10:18 or ICD? When Was Last Pacemaker Check QUESTION #4 FULL TEXT: You/Your Family Experience fever (hyperthermia) with Anesthesia Last Oral Intake Last Oral intake: Last Oral Intake NPO since 06:00 07/25/25 10:18 Meds taken in AM with sips of Yes 07/25/25 10:18 water? Meds patient instructed to citalopram, jeevananse 07/25/25 10:18 take am of surgery PONV PONV - seismic interpreter: PONV - seismic interpreter Female No 07/19/25 10:22 HX of Motion Sickness No 07/19/25 10:22 HX of N/V After Surgery No 07/19/25 10:22 Non-Smoker No 07/19/25 10:22 Duration of Surgery greater No 07/19/25 10:22 than 60 minutes Number of Risk Factors PONV Score Height & Weight Height & Weight: Anesthesia: Height & Weight Height 5 ft 10 in 07/25/25 10:18 Weight: 78 kg 07/25/25 10:18 Body Mass Index (BMI) 24.6 07/25/25 10:18 Respiratory Assessment Respiratory Assessment - seismic interpreter: Respiratory Tract Infection Hx - seismic interpreter Hx Respiratory Tract Infection No 07/19/25 10:22 STOP Sleep Apnea STOP Sleep Apnea - seismic interpreter: STOP Sleep Apnea - seismic interpreter Hx Hypertension No 07/19/25 10:22 Hx Sleep Apnea No 07/19/25 10:22 CPAP No 03/20/15 09:05 BIPAP No 03/18/15 10:38 Do you snore loudly (louder Yes 07/19/25 10:22 than talking or can be heard Do you often feel tired/ No 07/19/25 10:22 fatigued/ sleepy during daytime? Has anyone observed you stop No 07/19/25 10:22 breathing during sleep? STOP Results Negative 07/19/25 10:22 QUESTION #5 FULL TEXT : Do you snore loudly (louder than talking or can be heard through closed doors)? 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 Specify any problems Hx of Preganancy in last 3 N/A 07/19/25 10:22 Months Nurse Filling Out Transfusion DSCHRIBER 07/19/25 10:22 & Questions: Date: 07/19/25 07/19/25 10:22 Time: 10:24 07/19/25 10:22 Patient unable to answer at this time (ie. confused, unrespo /Reproduction History /Reproductive History - seismic interpreter: /Reproductive Hx- seismic interpreter Hx Now No 07/19/25 10:22 Gestational Age (in weeks): EDC: Hx Hx Para Hx Section SAB No 07/19/25 10:22 Does the father of the baby or his family experience fever w Father of the baby Malignant Hypertension history comment Active Medications Active Medications: Current Medications Generic Name Dose Route Start Last Admin Trade Name Freq PRN Reason Stop Dose Admin Lactated Ringer's 1,000 mls @ 15 mls/hr 07/25/25 10:15 07/25/25 10:29 IV 15 mls/hr .Q48H MARILU Administration PFSH Medical History Marijuana use History of steroid therapy Prostate disease Heartburn History of diverticulitis Vapes nicotine containing substance History of normal Holter exam Right carpal tunnel syndrome Anxiety ADHD Home Medications ?Medication ?Instructions ?Recorded ?Last Taken ?Type lisdexamfetamine 60 mg capsule 60 mg PO QAM 07/16/25 07/25/25 History tamsulosin 0.4 mg capsule 0.4 mg PO QHS 07/16/25 07/24/25 History tramadol 50 mg tablet 50 mg PO BID PRN pain 07/16/25 07/24/25 History citalopram 40 mg tablet 40 mg PO DAILY 07/19/25 07/25/25 History protein 1 ea PO DAILY 07/19/25 07/24/25 History Allergy/AdvReac Type Severity Reaction Status Date / Time amoxicillin Allergy Unknown Verified 07/25/25 10:12 Surgical History Hx of wisdom tooth extraction S/P scrotal varicocelectomy Social History Smoking Status: Current some day smoker tobacco type: cigarettes alcohol intake: former Review of Systems (Anesthesia) ROS Narrative System reviewed and no additional complaints, except as documented.
--- NOTE | 2025-07-25 11:34 | PCM.HP.STD ---
HPI - General HPI Narrative KERRIE MEJÍA, is a 40 M who presents for right endoscopic carpal tunnel release. No changes to history and physical exam. Right wrist marked. Risks alternatives benefits postoperative instructions and narcotic counseling given. The patient understands no further questions or concerns. MR#: [id number] Acct: [id number] Name: KERRIE MEJÍA Rep #: [id number] : 1985 Provider: Dr. Jey Hidalgo MD Age/Sex: 40/M Location: [facility] [place].[facility] Status: Signed Intake Vital Signs 01/26/2213:26 07/16/2507:59 Height 5 ft 9 in 5 ft 9 in Weight: 178 lb BMI 26.2 Intake Visit Reasons: BL HANDS Chief Complaint: Bilateral hand pain Accompanied by: Self Is patient in pain?: Yes Pain scale (1-10): 3 Allergies amoxicillin Allergy (Verified 07/16/25 08:03) Unknown Medications ?Medication ?Instructions ?Recorded ?Confirmed ?Type lisdexamfetamine 70 mg capsule 70 mg PO DAILY 03/18/15 07/16/25 History (Vyvanse) cefdinir 300 mg capsule 1 cap PO BID 01/26/22 07/16/25 History ciprofloxacin HCl 500 mg tablet 500 mg PO BID #20 tabs 01/26/22 07/16/25 Rx (Cipro) lisdexamfetamine 60 mg capsule 60 mg PO QAM PRN 07/16/25 07/16/25 History tamsulosin 0.4 mg capsule 0.4 mg PO QHS 07/16/25 07/16/25 History tramadol 50 mg tablet 50 mg PO BID PRN 07/16/25 07/16/25 History Have you fallen in the past year?: No PFSH Medical History (Updated 07/16/25 @ 08:08 by Jey Hidalgo MD) Right carpal tunnel syndrome Anxiety ADHD Surgical History S/P scrotal varicocelectomy Social History Smoking Status: Current some day smoker tobacco type: cigarettes alcohol intake: former HPI BL HANDS Details: This documentation accurately reflects the service provided and the decisions made by me, Dr. Jey Hidalgo MD 07/16/25 0759. Part of today?s visit was documented by [ ], acting as scribe. KERRIE MEJÍA is a 40 year old M here today for R CTS. this has been going on for about 10 years. 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 Patient is interested in going ahead with surgery especially on the right side. Ortho Exam General General: Yes no acute distress Neurologic: Yes alert and Yes oriented x3 Psychologic: Yes reasonable and appropriate Right Wrist/Hand Skin/Wound: Yes CDI, No Swelling, No Ecchymosis, Yes nail intact and Yes capillary refill normal Right Wrist: Yes ROM-Extension 0-60, ROM-Flexion 0-80, ROM-Pronation 0-80, ROM-Supination 0-90, Durken's Test, Tinel's and Phalen's; No Palpable Nodule, Thenar Atrophy or Hypothenar Atrophy Motor: EPL: 5, FDP-2: 5, 1st Dorsal Interosseous: 5 and APB: 5 Sensation: Radial: I, Ulnar: I and Median: I Left Wrist/Hand Skin/Wound: Yes CDI, No Swelling, No Ecchymosis, Yes nail intact, Yes capillary refill normal and No erythema Left Wrist: Yes ROM-Extension 0-60, Yes ROM-Flexion 0-80, Yes ROM-Pronation 0-80, Yes ROM-Supination 0-90, Yes Durken's Test, Yes Tinel's and Yes Phalen's; No Thenar Atrophy and No Hypothenar Atrophy Motor: EPL: 5, FDP-2: 5, 1st Dorsal Interosseous: 5 and APB: 5 Sensation: Radial: I, Ulnar: I and Median: I Supplemental Info [facility]Neurology [address] [place] [address] MR#: [id number] Acct: [id number] Name: KERRIE MEJÍA Rep #: [id number] : 1985 40 From: Evelio Ladd MD Referring Dr: Crow Alfonso DO Status: REG CLI Location: PSN Date: 04/18/25 Sex: M C NCS and/or EMG Patient Report Ordering Doctor: Crow Alfonso DATE OF SERVICE: 04/18/25 Kerrie presents with complaints of numbness and tingling in the hands. Electrodiagnostic findings: Right median motor nerve demonstrates normal distal latency, amplitude and conduction velocity. Left median motor response within normal limits. Normal ulnar motor response bilaterally. Normal median ulnar F?waves. Prolonged right median sensory latency at the wrist with reduced conduction velocity. Needle EMG testing was performed upper limbs. All muscles tested showed no evidence of denervation with normal motor unit action potentials. Electrodiagnostic impression: This is an abnormal study in the upper limbs 1. Electrodiagnostic findings suggestive of right sided median mononeuropathy. This consistent with a mild right carpal tunnel syndrome. There is no electrodiagnostic evidence for a left-sided carpal tunnel syndrome 2. No electrodiagnostic evidence is noted for ulnar neuropathy. Coding Level of Care Code Off vis,new,level 4 Diagnoses Right carpal tunnel syndrome G56.01 Additional Codes Intake - Is patient in pain?: Yes (1125F) Assessment and Plan Assessment and Plan (1) Right carpal tunnel syndrome: Status: Acute Plan: 40-year-old man with right carpal tunnel syndrome. Also possibly present on the left side though there is no nerve conduction study evidence of this he certainly has the typical signs and symptoms as well as positive physical exam findings on both sides. Explained the diagnosis prognosis different treatment options open versus endoscopic carpal tunnel release. The patient wants to go ahead with right endoscopic carpal tunnel release and signed the consent form for surgery. Pros and cons risks and benefits were discussed with the patient including but not limited to infection, pain, stiffness, bleeding, damage to surrounding structures, neurovascular injury, recurrence or retear, failure or wear of hardware or fixation, instability, fracture, deep vein thrombosis and pulmonary embolism, anesthetic risks, , patient dissatisfaction, need for further surgery and other risks. Patient understood and wished to proceed with surgery, and signed the informed consent documentation. I did warn the patient that even with surgery occasionally with vibratory tools or things like motorcycles or other repetitive activities this could still be potentially brought on even with successful recovery after surgery. Carpal Tunnel Syndrome (CTS) occurs when the median nerve, which runs through the wrist, becomes compressed. Treatment options vary based on the severity of the condition: Non-Surgical Treatments: Wrist Splinting: Wearing a splint at night to keep the wrist in a neutral position. Activity Modification: Avoiding repetitive wrist movements or adjusting work habits. Physical Therapy: Exercises to improve wrist and hand function. Medications: Anti-inflammatory drugs (NSAIDs) or corticosteroid injections to reduce swelling and pain. Surgical Treatment: Carpal Tunnel Release Surgery: A procedure where the ligament pressing on the median nerve is cut to relieve pressure. This is considered when non-surgical treatments are ineffective. Options are min-open or endoscopic. Medications: Discontinued hydrocodone-acetaminophen 5-325 mg Discontinued Reason: Pt no longer taking 1 TAB PO Q6H 3 days PRN 10 tabs 0RF pain K57.92 - Diverticulitis of intestine, part unspecified, without perforation or abscess without bleeding metronidazole Discontinued Reason: Pt no longer taking 500 mg PO Q8H 7 days 21 tabs 0RF Clinical Quality Measures Falls Risk Screening/Assistive Devices Have you fallen in the past year?: No [facility] Medical History Marijuana use History of steroid therapy Prostate disease Heartburn History of diverticulitis Vapes nicotine containing substance History of normal Holter exam Right carpal tunnel syndrome Anxiety ADHD Home Medications ?Medication ?Instructions ?Recorded ?Last Taken ?Type lisdexamfetamine 60 mg capsule 60 mg PO QAM 07/16/25 07/25/25 History tamsulosin 0.4 mg capsule 0.4 mg PO QHS 07/16/25 07/24/25 History tramadol 50 mg tablet 50 mg PO BID PRN pain 07/16/25 07/24/25 History citalopram 40 mg tablet 40 mg PO DAILY 07/19/25 07/25/25 History protein 1 ea PO DAILY 07/19/25 07/24/25 History Allergy/AdvReac Type Severity Reaction Status Date / Time amoxicillin Allergy Unknown Verified 07/25/25 10:12 Surgical History Hx of wisdom tooth extraction S/P scrotal varicocelectomy Social History Smoking Status: Current some day smoker tobacco type: cigarettes alcohol intake: former Patient's Goals Of Care . What would you like to achieve or improve as a result of your hospital stay?: n/a Vital Signs Vital Signs Vital Signs: 07/25/25 10:18 07/25/25 10:18 07/25/25 10:18 Temperature 99.3 F H Temperature Source Temporal Pulse Rate 98 Respiratory Rate 18 Respiratory Pattern Normal Blood Pressure 138/85 H Blood Pressure Mean 102 Blood Pressure Source Monitor Blood Pressure Position Semi-Fowlers Blood Pressure Location Right Arm Baseline BP 138/85 Pulse Ox 98 Oxygen Delivery Method Room Air 07/25/25 10:59 Temperature 99.3 F H Temperature Source Pulse Rate 98 Respiratory Rate 18 Respiratory Pattern Blood Pressure 138/85 H Blood Pressure Mean Blood Pressure Source Blood Pressure Position Blood Pressure Location Baseline BP Pulse Ox 98 Oxygen Delivery Method Weight Weight: 171 lb 15.369 oz Body Mass Index (BMI) 24.6
[2025-07-25] MEDS: Cefazolin 1 GM/5 ML Vial 2 GM IV (11:50)
[2025-07-25] MEDS: Midazolam 2 MG/2 ML Syringe IV (11:50)
[2025-07-25] MEDS: Lidocaine 1% (5 ml sdv) 5 ML Vial 8 ML IV (11:55)
--- NOTE | 2025-07-25 12:17 | OP.PCM_ITS ---
Procedures Musculoskeletal 20xxx-29xxx: Other Procedure See Report Operative Report (Standard) Operative Information Date of Procedure: 07/25/25 Pre-Operative Diagnosis: R CTS Post-Operative Diagnosis: same Surgery/Procedure Performed: R ECTR calender machine operator: Yes Supervisor Uranium Processing: rodríguez Tasks completed by chef assistant: Retracting Additional community relations assistant?: No Type of Anesthesia: Local MAC and Local RN Documented Start/Stop Times: Operation Date: 07/25/25 12:00 Case Time Into Pre-Op 07/25/25 10:04 Out of Pre-Op 07/25/25 11:47 Anesthesia Start 07/25/25 11:51 Into Room 07/25/25 11:51 Procedure Start 07/25/25 12:03 Procedure End 07/25/25 12:16 Procedure Start Time: 12:03 Procedure Stop Time: 12:16 Select all DRAINS/GRAFTS/IMPLANTS that apply: None Estimated Blood Loss: 10 Specimen collected: No Description of surgery: Patient brought to the operating room theater. Placed supine upon on the table. 2g iv ancef before the start of the case. MAC induced by the anesthetic team. Patient placed supine on the table all bony prominences padded. SCDs on the legs. Hand table used right side. Tourniquet applied properly padded to the upper extremity. Upper extremity prepped and draped in the usual sterile fashion with chlorhexidine-based prep solution allowing over 3 minutes drying time prior to draping. Preoperative timeout performed to confirm the site patient and the surgery. Began by elevating the limb and inflated the tourniquet to 250 mmHg. I used the [employer] center line endoscopic carpal tunnel kit technique. 6cc 0.25% bupivicaine for local anesthesia. I made a transverse 2 cm incision in line with the? transverse wrist crease.? This was in line with the fourth digit.? I carried the dissection down through skin and subcutaneous tissue achieved meticulous hemostasis. Just ulnar to palmaris tendon.? I incised the antebrachial fascia, in a U shape.? I passed sequential dilators into the carpal tunnel along the radial border of the Guyon's canal aiming for the fourth digit with the wrist in extension.? I used a synovial elevator to identify the transverse fibers of the transverse carpal tunnel ligament.? Passed the scope into the carpal tunnel. Once I had identified the full proximal and distal extent of the ligament I fully released the ligament under direct visualization by deploying the blade and slowly withdrawing the scope made sequential passes until I no longer felt tension as well as the entire extent of the ligament was released under direct visualization.? Sounded the tunnel with hood tenotomy scissors, complete release, no bands. Nerve visualized and protected. Arthroscope light was more visible through the skin. More room for the large dilator. Release the forearm fascia also proximal. Pictures taken and saved. Wounds thoroughly irrigated.? Tourniquet let down prior to end of the case and meticulous hemostasis achieved.? Thorough irrigation.? ? Incisions closed with 3-0 ethilon, horizontal mattress. ?Then adaptic 4x4 gauze and tape. Patient woken up,? transferred off the operating room table and taken to postanesthetic care unit in stable condition. All sponge needle instrument counts were correct no complications.?Plan for the patient to be discharged home according to day surgery criteria when they are comfortable. Follow-up in the office in 2 days time. Gentle ROM finger and elbow no heavy lifting. Recommend wrist brace 2 weeks. cpt 34172 Surgical Findings: as above Complications Complications: No Admit VTE Documentation VTE Present on Admission: No VTE Mechan Device Prophylaxis: SCD's VTE Pharm Prophylaxis ordered?: No Reason prophylaxis not ordered: Treatment Not Indicated
--- NOTE | 2025-07-25 12:19 | DCINST_ITS ---
Discharge Instructions Diet Discharge Diet: No restrictions Activity Discharge Activity: Return to Normal Activity Ice area for (Minutes): 10 Lifting Restrictions: no repetitive lifting or heavy gripping Keep extremity elevated above heart level: Operative Extremity Additional Activity Instructions:: ok for self care, wear wrist brace 2 weeks Dressing / Incision Call your doctor if your incision/area has: Continuous Slow Oozing, Sudden Increased Bleeding, Increased Pain/ Swelling, Increased Redness, Foul Smelling Discharge and Swelling at the incision site Call your doctor if you observe: Fever of 101 or Higher, Coldness, Increased Pain and Numbness or Tingling Change Dressing in: 2 days Cleanse incision/area with: Do not get Incision Wet Follow Up Care Please Follow Up With: Jey Hidalgo MD When: within 2 weeks Test Results: Test results from this visit will be discussed in further detail at your follow- up appointment, if applicable. Discharge Plan Admission Attending Provider: Jey Hidalgo Primary Care Provider: Crow Alfonso Instructions Patient Instructions: Carpal Tunnel Release Surgery Print Language: Slovenian Discharge Orders/Prescriptions Prescriptions: No Action tramadol 50 mg tablet 50 mg PO BID PRN (Reason: pain) tamsulosin 0.4 mg capsule 0.4 mg PO QHS lisdexamfetamine 60 mg capsule 60 mg PO QAM citalopram 40 mg tablet 40 mg PO DAILY protein Powder 1 ea PO DAILY Referrals / Follow Up: Crow Alfonso DO [Primary Care Provider, Family Practice] Jey Hidalgo MD [Med Staff - Active Staff, Orthopedics] Disposition Disposition (needs filled in before D/C Order can be placed): Home, Self Care
--- NOTE | 2025-07-25 12:41 | PCM.POST.ANE ---
Anesthesia: Postop Eval I Current Vital Signs Temperature: 97.6 F Pulse Rate: 87 Blood Pressure: 109/73 Respiratory Rate: 16 Pulse Ox: 94 Assessment Airway patent: Yes Spontaneous unlabored respirations: Yes nausea: No Vomiting: No Anesthesia Complication: No Fluid Hydration Crystalloid volume administer (ml): 800 Total IV fluid infused: 800 Progress Note Anesthesia document: Postop Eval 1 completed: Yes
--- NOTE | 2025-07-25 13:29 | POSTOPAN2_ITS ---
Anesthesia Postop Eval I Sum Postop Eval Completion status Anesthesia document: Postop Eval 1 completed: Yes Anesthesia Postop Eval I Summary Anesthesia Postop Eval I Summary: Anesthesia Postop Eval I: Assessment Summary Airway patent Yes 07/25/25 12:41 PAINT PROCESS [email or web address] Spontaneous unlabored Yes 07/25/25 12:41 PAINT PROCESS [email or web address] respirations Mental status nausea No 07/25/25 12:41 PAINT PROCESS [email or web address] Vomiting No 07/25/25 12:41 PAINT PROCESS [email or web address] Anesthesia Postop Eval I: Fluid Summary Crystalloid volume administer 800 07/25/25 12:41 PAINT PROCESS [email or web address] (ml) Colloids volume administered ( ml) Blood Product volume administered (ml) Total IV fluid infused 800 07/25/25 12:41 PAINT PROCESS [email or web address] Anesthesia Postop Eval I: Summary Notes Anesthesia Complication No 07/25/25 12:41 PAINT [email or web address] [email or web address] Anesthesia Complication Comment: Post-operative progress note Anesthesia: Postop Eval II Evaluation Mental status: Awake Pain Level: 0 nausea: No Vomiting: No
--- NOTE | 2025-07-25 13:29 | PCM.POSTANE2 ---
Anesthesia Postop Eval I Sum Postop Eval Completion status Anesthesia document: Postop Eval 1 completed: Yes Anesthesia Postop Eval I Summary Anesthesia Postop Eval I Summary: Anesthesia Postop Eval I: Assessment Summary Airway patent Yes 07/25/25 12:41 FIRST [email or web address] Spontaneous unlabored Yes 07/25/25 12:41 FIRST [email or web address] respirations Mental status nausea No 07/25/25 12:41 FIRST [email or web address] Vomiting No 07/25/25 12:41 FIRST [email or web address] Anesthesia Postop Eval I: Fluid Summary Crystalloid volume administer 800 07/25/25 12:41 FIRST [email or web address] (ml) Colloids volume administered ( ml) Blood Product volume administered (ml) Total IV fluid infused 800 07/25/25 12:41 FIRST [email or web address] Anesthesia Postop Eval I: Summary Notes Anesthesia Complication No 07/25/25 12:41 FIRST [email or web address] Anesthesia Complication Comment: Post-operative progress note Anesthesia: Postop Eval II Evaluation Mental status: Awake Pain Level: 0 nausea: No Vomiting: No
== END 2025-07-25 13:05 | disposition home or self-care (01) ==
LOC: SDC 09:57 → AC 10:02
PROVIDERS: PCP Family Medicine; Referring Provider Orthopaedic Surgery Sports Medicine; Visit Provider Orthopaedic Surgery Sports Medicine
PROC: (CPT 29848; principal; 2025-07-25 11:45)
DX: G56.01 Carpal tunnel syndrome, right upper limb (principal); F17.210 Nicotine dependence, cigarettes, uncomplicated
CPT/HCPCS: 29848; 01810